=== PATIENT | male | born 1980 | race Caucasian/White ===

== ENCOUNTER 2018-01-26 01:02 | Inpatient (IN) | payer BC, OTHER ==
[2018-01-26] MEDS ORDERED: MORPHINE SULFATE 4 MG/ML SYRG ONE (02:10)
[2018-01-26] MEDS ORDERED: MORPHINE SULFATE 4 MG/ML SYRG IV ONE (02:12)
--- NOTE | 2018-01-26 02:19 | ERNOTE ---
Lower Extremity HPI - Narrative Date of Service: 01/26/18 - General Lower Extremities Pain: leg: right Time Seen by Provider: 01/26/18 02:08 Source: patient, family Exam Limitations: no limitations - Immun/Allergies/Home Medications Immunizations: IMMUNIZATION HX Immunizations Up to Date No Allergies/Adverse Reactions: Allergies Allergy/AdvReac Type Severity Reaction Status Date / Time No Known Allergies Allergy Unverified 08/11/13 02:14 - History of Present Illness Narrative: [place] slipped [place] twisted leg, seen in [facility] transferred to [facility], accepted for transfer by conrado george Occurred: yesterday Location of Incident: [place] Method of Injury: Reports: fell, twisted, direct blow Reason for Fall: Reports: slipped, tripped Loss of Consciousness: Reports: no loss of consciousness Modifying Factors - (Improves): Reports: rest Modifying Factors - (Worsens): Reports: movement Associated Symptoms: Reports: unable to bear weight Other Injuries: Reports: none Prior Treament: Reports: recently seen, treated by physician, other - transferred from [facility] Review of Systems - Narrative Narrative: unremarkable - Review of Systems Constitutional: Present: See HPI EYE: Present: no symptoms reported ENT: Present: no symptoms reported Respiratory: Present: no symptoms reported Cardiology: Present: no symptoms reported Gastrointestinal/Abdominal: Present: no symptoms reported Genitourinary: Present: no symptoms reported Musculoskeletal: Present: See HPI, muscle pain, muscle stiffness, joint pain Skin: Present: no symptoms reported Neurological: Present: no symptoms reported Endocrine: Present: no symptoms reported Hematologic/Lymphatic: Present: no symptoms reported Psych: Present: no symptoms reported All Other Systems: All systems neg except as marked Social History: Preferred Language Fijian Do you have any congregation or No cultural preference? Smoking Status Current every day smoker Alcohol Use occasionally Drug Use none Physical Exam - Physical Exam General Appearance: Present: moderate distress, anxious Head Exam: Present: normal inspection, no evidence of injury Eye Exam: Normal inspection: bilateral, PERRL: bilateral, EOMI: bilateral Ears, Nose, Throat: Present: normal ENT inspection, normal pharynx Neck: Present: normal inspection, nontender Respiratory: Present: no respiratory distress, normal breath sounds, no accessory muscle use, chest nontender, lungs clear Cardiovascular/Chest: Present: regular rate, rhythm, no murmur, normal peripheral pulses Gastrointestinal/Abdominal: Present: normal bowel sounds, nontender, nondistended, soft, no organomegaly Back Exam: Present: normal inspection, normal range of motion, no CVA tenderness , no vertebral tenderness Extremity Exam: Present: normal except - - moderate swelling lower right leg, neurovasclar intact Neurological Exam: Present: alert, oriented, normal mood/affect, no motor/ sensory deficits Skin Exam: Present: normal color, warm/dry Lymphatic Exam: Present: no adenopathy ED Progress - Date and Time Seen: Date and Time: 01/26/18 02:14 condition unchanged, case discussed with conrado milian, accepted for admission - Vital Signs Patient's Vital Signs:: I have reviewed the patient's vital signs. Vital Signs: Vital Signs 01/26/18 01:10 01/26/18 01:42 Temperature 36.4 C Pulse Rate 87 84 Respiratory Rate 15 16 Blood Pressure 125/81 136/93 H O2 Sat by Pulse Oximetry 97 97 - X-Ray X-Ray #1 X-Ray: leg Interpretation: Interp. by me - review of kah reveal distal tibia fracture, proximal fibula fracture - Progress/Reassessment Chief Complaint: Lower Extremity Pain/ Injury Progress:: Unchanged - ocl posterior splint applied per recomendation of conrado milian - Transfer of Care Expected Disposition: Admit Plan - Plan Plan: to be admitted Departure Clinical Impression: Tibia vara of right lower extremity, Fibula upper end fracture - Departure Disposition: Still a patient Condition: Fair
[2018-01-26 02:33] LABS: Hematocrit 48.1 % (42.0-52.0); Hemoglobin 16.4 gm/dL (13.5-18.0); Mean Cell Volume 90.2 fl (78-100); Mean Corpuscular Hemoglobin 30.8 pg (27-31); Mean Corpuscular Hgb Conc 34.1 g/dl (32-36); Mean Platelet Volume 9.8 fl (8-11.3); Neutrophil # 11.2 K/mm3 (1.3-6.0); Neutrophil % 73.3 % (42-75.0); Platelet Count 254 K/mm3 (150-450); Red Blood Count 5.33 M/mm3 (4.7-6.0); Red Cell Distribution Width 12.4 % (11.5-14.0); White Blood Count 15.3 K/mm3 (4.0-10.5)
[2018-01-26 02:45] LABS: Prothrombin Time (Patient) 10.3 Seconds (9.0-11.0)
[2018-01-26 02:47] LABS: Albumin * 4.1 gm/dl (3.4-5.0); Anion Gap 16.5 mmol/L (6.8-13.8); BUN/Creatinine Ratio 6.9 (9.0-21.6); Bilirubin, Total 0.4 mg/dL (0.0-1.1); Calcium * 8.4 mg/dL (7.9-10.9); Carbon Dioxide 25.5 mmol/L (24-32.6); INR 1.03 INR (0.90-1.10); Partial Thrombolplastin Time 23.1 Seconds (24-32); Total Protein 7.4 gm/dL (6.2-8.2)
[2018-01-26] MEDS: NORMAL SALINE 1,000 ML IV PRN ×2 (04:00→11:40)
[2018-01-26] MEDS: MORPHINE SULFATE 2 MG/ML DISP.SYRIN IV PRN ×4 (04:41→15:15)
[2018-01-26] MEDS ORDERED: ceFAZolin SODIUM 1 GM VIAL IV PRN (08:35)
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
--- NOTE | 2018-01-26 13:24 | ANES ---
Anesthesia Pre Procedure Eval Vitals/Labs: Last Vital Signs Temp 36.8 C 01/26/18 10:12 Pulse 78 01/26/18 10:12 Resp 16 01/26/18 10:12 BP 133/74 01/26/18 10:12 Pulse Ox 98 01/26/18 10:12 Laboratory Last Values WBC 15.3 K/mm3 (4.0-10.5) H 01/26/18 02:19 RBC 5.33 M/mm3 (4.7-6.0) 01/26/18 02:19 Hgb 16.4 gm/dL (13.5-18.0) 01/26/18 02:19 Hct 48.1 % (42.0-52.0) 01/26/18 02:19 MCV 90.2 fl (78-100) 01/26/18 02:19 MCH 30.8 pg (27-31) 01/26/18 02:19 MCHC 34.1 g/dl (32-36) 01/26/18 02:19 RDW 12.4 % (11.5-14.0) 01/26/18 02:19 Plt Count 254 K/mm3 (150-450) 01/26/18 02:19 MPV 9.8 fl (8-11.3) 01/26/18 02:19 Immature Gran % (Auto) 0.50 % (0.001-0.429) H 01/26/18 02:19 Immature Gran # (Auto) 0.07 K/mm3 (0.000-0.0310) H 01/26/18 02:19 Neutrophils % 73.3 % (42-75.0) 01/26/18 02:19 Lymphocytes % 19.5 % (20-51) L 01/26/18 02:19 Monocytes % 5.6 % (0.0-9) 01/26/18 02:19 Eosinophils % 0.5 % (0.0-3.0) 01/26/18 02:19 Basophils % 0.6 % (0.0-1.0) 01/26/18 02:19 Nucleated RBC % 0.0 k/mm3 (0-1) 01/26/18 02:19 Neutrophils # 11.2 K/mm3 (1.3-6.0) H 01/26/18 02:19 Lymphocytes # 2.99 k/mm3 (1.5-3.5) 01/26/18 02:19 Monocytes # 0.9 k/mm3 (0.0-1.0) 01/26/18 02:19 Eosinophils # 0.1 k/mm3 (0.0-0.7) 01/26/18 02:19 Absolute Basophils 0.1 k/mm3 (0.0-0.1) 01/26/18 02:19 PT 10.3 Seconds (9.0-11.0) 01/26/18 02:35 INR (Anticoag Therapy) 1.03 INR (0.90-1.10) 01/26/18 02:35 PTT (Cannon) 23.1 Seconds (24-32) L 01/26/18 02:35 Sodium 141 mmol/L (132-142) 01/26/18 02:35 Plasma Sodium 141 mmol/L (130-142) 01/26/18 02:35 Potassium 4.0 mmol/L (3.4-4.6) 01/26/18 02:35 Chloride 103 mmol/L (97-106) 01/26/18 02:35 Carbon Dioxide 25.5 mmol/L (24-32.6) 01/26/18 02:35 Anion Gap 16.5 mmol/L (6.8-13.8) H 01/26/18 02:35 BUN 7 mg/dL (6-23) 01/26/18 02:35 Creatinine 1.01 mg/dL (0.4-1.4) 01/26/18 02:35 Est GFR (Non-Af Amer) 87 mL/min (60-130) 01/26/18 02:35 BUN/Creatinine Ratio 6.9 (9.0-21.6) L 01/26/18 02:35 Random Glucose 118 mg/dL (70-110) H 01/26/18 02:35 Calcium 8.4 mg/dL (7.9-10.9) 01/26/18 02:35 Calcium Adj for Albumin 8.0 mg/dL (8.4-10.2) L 01/26/18 02:35 Total Bilirubin 0.4 mg/dL (0.0-1.1) 01/26/18 02:35 AST 19 U/L (0-48) 01/26/18 02:35 ALT 47 U/L (19-67) 01/26/18 02:35 Alkaline Phosphatase 65 U/L (50-170) 01/26/18 02:35 Total Protein 7.4 gm/dL (6.2-8.2) 01/26/18 02:35 Albumin 4.1 gm/dl (3.4-5.0) 01/26/18 02:35 HOME MEDICATIONS NK 01/26/18 [Last Taken Unknown] Allergies/Adverse Reactions: Allergies Allergy/AdvReac Type Severity Reaction Status Date / Time No Known Allergies Allergy Unverified 01/26/18 03:25 - Planned Procedure Planned Procedure: ORIF right tibia Medication List Reviewed:: Yes Allergies Verified: Yes Medical History (Last Reviewed 01/26/18 @ 13:21 by Osiel De Leon CRNA) Elbow fracture, left Herniated disc Surgical History (Last Reviewed 01/26/18 @ 13:21 by Osiel De Leon CRNA) Elbow fracture, right Onset Date: ~2013 Family History (Last Reviewed 01/26/18 @ 13:21 by Osiel De Leon CRNA) Mother Hypertension Father Hypertension - Airway/Neck/Teeth Within Normal Limits:: Yes Teeth Condition: Intact Mallampatti Score: 2 Thyromental (T-M) distance: > 6 cm Mandibulo Hyoid distance: > 3 cm - Respiratory Respiratory: lungs clear Smoking Status: Current every day smoker Discussed smoking cessation including day of surgery: Yes Sleep Apnea currently treated: No Sleep Apnea by current assessment: No Discussed Risks/Treatment of DEANN: No - Cardiovascular Tolerates Activity: Good Heart Sounds: S1 & S2, Regular - Anesthesia Assessment and Plan ASA Class: II Anesthesia Type Plan: General LMA - Risks & benefits of SAB vs GA discussed. Patient chooses general anesthetic Planned difficult intubation/equipment available: No
[2018-01-26] MEDS: RINGER'S SOLUTION,LACTATED 1,000 ML IV PRN ×2 (16:45→20:20)
[2018-01-26] MEDS ORDERED: PROMETHAZINE HCL 5 MG in DEXTROSE 5 % IN WATER 50 ML IV PRN ×2 (19:24)
[2018-01-26] MEDS ORDERED: MORPHINE SULFATE 4 MG/ML SYRG IV PRN (19:24)
[2018-01-26] MEDS ORDERED: MAGNESIUM HYDROXIDE 30 ML UDC PO PRN (19:24)
[2018-01-26] MEDS ORDERED: MAG HYDROX/ALUMINUM HYD/SIMETH 30 ML UDC PO PRN (19:24)
[2018-01-26] MEDS ORDERED: ONDANSETRON HCL/PF 2 MG/ML VIAL IV PRN (19:24)
[2018-01-26] MEDS ORDERED: oxyCODONE HCL/ACETAMINOPHEN 1 TAB TABLET PO PRN (19:24)
[2018-01-26] MEDS ORDERED: ACETAMINOPHEN 500 MG TABLET PO PRN (19:24)
[2018-01-26] MEDS ORDERED: diphenhydrAMINE HCL 50 MG/ML VIAL IV PRN (19:24)
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
--- NOTE | 2018-01-26 20:21 | ANES ---
Post Anesthesia Discharge - Transfer of Care Transfer of Care handoff given to nurse: Yes - Discharge from PACU Discharge from PACU when meets criteria: Yes - Anesthesia Post Op Note Anesthesia Post Op Note: Comfortable in PACU.
--- NOTE | 2018-01-26 20:24 | ANES ---
Anesthesia Procedure Note Procedure Note: ANESTHESIA PROCEDURE NOTE Date of Procedure: 01/26/2018 Time of procedure: 1550. Performed by: JAC Marina CRNA, MSN Real Estate Investor: Hellen Mike RN. Preprocedure diagnosis: Post tibia surgery pain relief. Post procedure diagnosis: Same. Procedure: Right Adductor Canal Block. Indications: Post tibial surgery pain relief. Findings: See below. Details of the procedure: The patient was brought to OR #4 and placed in supine position. The patient's right femoral area to the knee was prepped with chlorhexidine and using ultrasound guidance the right femoral artery and nerve was identified and then followed to the level of the adductor canal. Lidocaine 1% was infiltrated to the skin of the intended injection site. Under ultrasound guidance the saphenous nerve was approached with visualization of a 4 inch shielded block needle. Once saphenous nerve was identified with proximity to the needle tip, the saphenous nerve was surrounded with 20 mL bupivacaine 0.25% with 1-200,000 epinephrine. Please see radiology/ultrasound report for details and retained images of the procedure. EBL: 0 Fluids: N/A. Specimen: N/A. Post procedure condition: The patient tolerated the procedure well. No complications were noted. Thank you for this consultation. Karthik Fernandez CRNA, ARNP, MSN
[2018-01-26] MEDS ORDERED: SENNOSIDES/DOCUSATE SODIUM 1 TAB TABLET PO SCH (21:00)
--- NOTE | 2018-01-26 21:06 | ANES ---
Post Anesthesia Assessment - Vital Signs Vitals: Last Vital Signs Temp 36.7 C 01/26/18 20:50 Pulse 65 01/26/18 20:50 Resp 16 01/26/18 20:50 BP 115/83 01/26/18 20:50 Pulse Ox 95 01/26/18 20:50 Airway Patency: Normal - Mental Status Level Of Consciousness: Awake, Drowsy - Pain Level Pain Score: 1 - N/V Assessment Nausea/Vomiting Presence: None Dehydration:: No
[2018-01-26] MEDS: ceFAZolin SODIUM 2 GM in DEXTROSE 5 % IN WATER 100 ML IV SCH ×2 (22:15)
[2018-01-26] MEDS: oxyCODONE HCL/ACETAMINOPHEN 1 TAB TABLET PO PRN (22:26)
[2018-01-27] MEDS: NORMAL SALINE 1,000 ML IV PRN ×2 (02:19→10:56)
[2018-01-27] MEDS: oxyCODONE HCL/ACETAMINOPHEN 1 TAB TABLET PO PRN ×3 (02:30→12:43)
[2018-01-27] MEDS: ceFAZolin SODIUM 2 GM in DEXTROSE 5 % IN WATER 100 ML IV SCH ×4 (04:28→11:03)
[2018-01-27 05:54] LABS: Anion Gap 12.4 mmol/L (6.8-13.8); BUN/Creatinine Ratio 9.8 (9.0-21.6); Calcium * 7.7 mg/dL (7.9-10.9); Carbon Dioxide 28.5 mmol/L (24-32.6); Estimated Creat Clear 109.9; Potassium 3.9 mmol/L (3.4-4.6)
[2018-01-27 05:56] LABS: Hematocrit 39.2 % (42.0-52.0); Hemoglobin 13.1 gm/dL (13.5-18.0); Mean Cell Volume 93.1 fl (78-100); Mean Corpuscular Hemoglobin 31.1 pg (27-31); Mean Corpuscular Hgb Conc 33.4 g/dl (32-36); Mean Platelet Volume 10.6 fl (8-11.3); Platelet Count 191 K/mm3 (150-450); Red Blood Count 4.21 M/mm3 (4.7-6.0); Red Cell Distribution Width 12.2 % (11.5-14.0); White Blood Count 15.3 K/mm3 (4.0-10.5)
[2018-01-27] MEDS ORDERED: ASPIRIN 325 MG TABLET.DR PO SCH (09:00)
--- NOTE | 2018-01-27 12:22 | DS ---
(1) Tibia/fibula fracture, shaft Problem: Acute Qualifiers: Encounter type: initial encounter Fracture type: closed Laterality: right Qualified Code(s): S82.201A - Unspecified fracture of shaft of right tibia, initial encounter for closed fracture; S82.401A - Unspecified fracture of shaft of right fibula, initial encounter for closed fracture Description of Stay: Patient presented to ER with right tibia/fibula fractures. He was admitted to undergo open reduction with intrameduallary nailing of tibial shaft fracture with distal extension intra-articularly with Dr. Morrow on 01/26/18. Patient underwent procedure without complication and was recovered, and kept overnight to monitor for surgical complications and pain. Today patient pain is well controlled with oral pain medication, his OCL splint is intact/clean/dry, will maintain in place until f/u. Exam of RLE reveals SILT, cap refill < 3 sec, great toe flex/ext 5/5. Discussed non-weight bearing status until f/u with crutches. Recommend rest, ice, elevation as much as possible for pain and swelling. he will f/u in 2 weeks in orthopedic outpatient clinic with Dr. Morrow. Procedures Performed: see notes below List Procedures: Open reduction internal fixation with intermedullary nailing of tibial shaft fracture with distal extension intra-articularly. Results and Findings: Lab Pending Results 01/26/18 01/26/18 01/26/18 02:19 02:35 02:35 WBC 15.3 H RBC 5.33 Hgb 16.4 Hct 48.1 MCV 90.2 MCH 30.8 MCHC 34.1 RDW 12.4 Plt Count 254 MPV 9.8 Immature Gran % (Auto) 0.50 H Immature Gran # (Auto) 0.07 H Neutrophils % 73.3 Lymphocytes % 19.5 L Monocytes % 5.6 Eosinophils % 0.5 Basophils % 0.6 Nucleated RBC % 0.0 Neutrophils # 11.2 H Lymphocytes # 2.99 Monocytes # 0.9 Eosinophils # 0.1 Absolute Basophils 0.1 PT 10.3 INR (Anticoag Therapy) 1.03 PTT (Bryan) 23.1 L Sodium 141 Plasma Sodium 141 Potassium 4.0 Chloride 103 Carbon Dioxide 25.5 Anion Gap 16.5 H BUN 7 Creatinine 1.01 Est GFR (Non-Af Amer) 87 BUN/Creatinine Ratio 6.9 L Random Glucose 118 H Calcium 8.4 Calcium Adj for Albumin 8.0 L Total Bilirubin 0.4 AST 19 ALT 47 Alkaline Phosphatase 65 Total Protein 7.4 Albumin 4.1 01/27/18 01/27/18 05:44 05:44 WBC 15.3 H RBC 4.21 L Hgb 13.1 L Hct 39.2 L MCV 93.1 MCH 31.1 H MCHC 33.4 RDW 12.2 Plt Count 191 MPV 10.6 Immature Gran % (Auto) Immature Gran # (Auto) Neutrophils % Lymphocytes % Monocytes % Eosinophils % Basophils % Nucleated RBC % Neutrophils # Lymphocytes # Monocytes # Eosinophils # Absolute Basophils PT INR (Anticoag Therapy) PTT (Bryan) Sodium 139 Plasma Sodium 140 Potassium 3.9 Chloride 102 Carbon Dioxide 28.5 Anion Gap 12.4 BUN 10 Creatinine 1.02 Est GFR (Non-Af Amer) 86 BUN/Creatinine Ratio 9.8 Random Glucose 148 H Calcium 7.7 L Calcium Adj for Albumin Total Bilirubin AST ALT Alkaline Phosphatase Total Protein Albumin Discharge Location: Home Disposition: Home self-care Condition: Good Discharge Activity: Non-Weight bearing Discharge Diet: General/regular food Problem Oriented Discharge Instructions to Patient/Family: Tibial and Fibular Fracture, Adult Print Language (Bahraini or Estonian Available): [place]raini Additional Patient Instructions (free text): Follow up in 2 weeks with orthopedics Jason Chauhan 02/09 at 1:15pm Prescriptions (Any new or edited meds): Aspirin [Aspirin Enteric Coated] 325 mg PO DAILY #42 tablet. oxyCODONE HCL/ACETAMINOPHEN [Percocet 5 MG/325 MG] 1 - 2 tab PO Q4H PRN #60 tab PRN Reason: Severe Pain (Pain Scale 7-10) Complete Home Medications List: Complete Home Medication List: Aspirin [Aspirin Enteric Coated] 325 mg PO DAILY #42 tablet. 01/27/18 Mag Hydrox/Aluminum Hyd/Simeth [Maalox Plus Suspension] 30 ml PO Q6H PRN udc Sennosides/Docusate Sodium [Senokot-S] 2 tab PO HS tablet 01/27/18 oxyCODONE HCL/ACETAMINOPHEN [Percocet 5 MG/325 MG] 1 - 2 tab PO Q4H PRN #60 tab 01/27/18
[2018-01-27 13:24] VITALS: BP 129/75
== END 2018-01-27 13:34 | disposition home or self-care (01) | DRG 494 ==
LOC: ER 01:02 → OB 02:22 → MS 02:30
PROVIDERS: ADMIT Orthopaedic Surgery; ATTEND Orthopaedic Surgery
DX: S82.401A Unspecified fracture of shaft of right fibula, initial encounter for closed fracture; F17.210 Nicotine dependence, cigarettes, uncomplicated; S82.221A Displaced transverse fracture of shaft of right tibia, initial encounter for closed fracture; X58.XXXA Exposure to other specified factors, initial encounter; Y92.9 Unspecified place or not applicable
CPT/HCPCS: 29515; 36415; 71010; 71045; 73590; 73700; 76000; 80048; 80053; 85025; 85027; 85610; 85730; 93005; 96374; 97161; 99284